=== PATIENT | male | born 1990 | race Two or more races ===

== ENCOUNTER 2023-06-20 15:39 | Emergency (ER) | payer MEDICAID, OTHER ==
[~2023-06-20] VITALS: Ht 175.3 cm; Wt 129.0 kg
[2023-06-20] MEDS ORDERED: IBUP1TAB5 PO (17:20)
[2023-06-20] MEDS ORDERED: HYDROcodone-ACET 5/325MG TAB PO ONE (17:30)
[2023-06-20 17:56] VITALS: BP 126/83; PULSE 91; RESP 18; TEMP 97; O2SAT 95
== END 2023-06-20 17:58 | disposition home or self-care (01) ==
LOC: ER 15:39
DX: S93.402A Sprain of unspecified ligament of left ankle, initial encounter (principal); X50.1XXA Overexertion from prolonged static or awkward postures, initial encounter; Y93.89 Activity, other specified; Y92.89 Other specified places as the place of occurrence of the external cause; Y99.8 Other external cause status
CPT/HCPCS: 29515; 73610